=== PATIENT | female | born 1965 ===

== ENCOUNTER 2018-09-04 15:15 | Emergency (ER) | payer MEDICAID ==
--- NOTE | 2018-09-04 16:12 | C.PDOC ---
History Of Present Illness 52 y/o female presents to the ER complaining of vertigo type dizziness which has been present since yesterday. Patient states that she has associated nausea and vomiting. Patient reports that she went to see Dr. Rayo Medina in the morning and he prescribed Meclizine and Reglan. She notes that she tried to take the medications but she vomited. She called and he advised her to visit the ER. Denies having fever, chills, CP, and SOB. Time Seen by Provider: 09/04/18 15:44 Chief Complaint (Nursing): Abdominal Pain History Per: Patient History/Exam Limitations: no limitations Onset/Duration Of Symptoms: Days Current Symptoms Are (Timing): Still Present Severity: Moderate Past Medical History Reviewed: Historical Data, Nursing Documentation, Vital Signs Vital Signs: Last Vital Signs Temp 98.4 F 09/04/18 15:26 Pulse 60 09/04/18 15:26 Resp 16 09/04/18 15:26 BP 111/68 09/04/18 15:26 Pulse Ox 100 09/04/18 15:26 - Medical History PMH: HTN Surgical History: No Surg Hx Family History: States: No Known Family Hx - Social History Hx Alcohol Use: No Hx Substance Use: No - Immunization History Hx Tetanus Toxoid Vaccination: No Hx Influenza Vaccination: No Hx Pneumococcal Vaccination: No Review Of Systems Except As Marked, All Systems Reviewed And Found Negative. Constitutional: Negative for: Fever, Chills Cardiovascular: Negative for: Chest Pain Respiratory: Negative for: Shortness of Breath Gastrointestinal: Positive for: Nausea, Vomiting Neurological: Positive for: Dizziness Physical Exam - Physical Exam Appears: Non-toxic, Other (uncomfortable) Skin: Normal Color, Warm, Dry Head: Atraumatic, Normacephalic Eye(s): bilateral: Normal Inspection, PERRL, EOMI Nose: Normal Oral Mucosa: Moist Neck: Supple Chest: Symmetrical Cardiovascular: Rhythm Regular Respiratory: Normal Breath Sounds, No Rales, No Rhonchi, No Wheezing Gastrointestinal/Abdominal: Normal Exam, Soft, No Tenderness, No Guarding, No Rebound Neurological/Psych: Oriented x3, Normal Speech ED Course And Treatment - Laboratory Results Result Diagrams: 09/04/18 16:38 09/04/18 16:38 ECG: Interpreted By Me, Viewed By Me ECG Rhythm: Sinus Rhythm Rate From EC O2 Sat by Pulse Oximetry: 100 (RA) Pulse Ox Interpretation: Normal - Radiology CXR: Interpreted by Me, Viewed By Me CXR Interpretation: Yes: No Acute Disease - CT Scan/US CT-Head Other Rad Studies (CT/US): Read By Radiologist, Radiology Report Reviewed CT/US Interpretation: Date of service: 09/04/2018. PROCEDURE: CT HEAD WITHOUT CONTRAST. HISTORY: dizzy, vomiting. COMPARISON: None available. TECHNIQUE: Axial computed tomography images were obtained through the head/brain without intravenous contrast. Radiation dose: Total exam DLP = 859.11 mGy-cm. This CT exam was performed using one or more of the following dose reduction techniques: Automated exposure control, adjustment of the mA and/or kV according to patient size, and/or use of iterative reconstruction technique. FINDINGS: HEMORRHAGE: No intracranial hemorrhage. BRAIN: No mass effect or edema. The jordan-white matter differentiation appears intact. Please note that MRI with diffusion imaging is more sensitive in the detection of acute ischemic event. VENTRICLES: No hydrocephalus. CALVARIUM: Unremarkable. PARANASAL SINUSES: Unremarkable as visualized. No significant inflammatory changes. MASTOID AIR CELLS: Unremarkable as visualized. No inflammatory changes. OTHER FINDINGS: None. IMPRESSION: No acute intracranial pathology identified. Progress Note: Labs, UA, and CT- Head ordered and reviewed. Pt treated with Zofran IV and IV Fluids. Pt tolerated PO challenge. On re-evaluation, she feels better. She has been discharged and instruced to follow up with her PMD in 1 -2 days. Disposition - Disposition Disposition: HOME/ ROUTINE Disposition Time: 18:07 Condition: STABLE Additional Instructions: Follow up with within 1-2 days. Return to ED if feel worse. Instructions: Vertigo (a Type of Dizziness) Forms: [employer]i Hits (Salvadorean) - Clinical Impression Clinical Impression: Vertigo - PA / SERVICE DESK MANAGER / Resident Statement MD/DO has reviewed & agrees with the documentation as recorded. - Scribe Statement The provider has reviewed the documentation as recorded by the Renee Spivey Provider Attestation All medical record entries made by the Senaitibe were at my direction and personally dictated by me. I have reviewed the chart and agree that the record accurately reflects my personal performance of the history, physical exam, medical decision making, and the department course for this patient. I have also personally directed, reviewed, and agree with the discharge instructions and disposition.
[2018-09-04] MEDS ORDERED: Sodium Chloride 0.9% 1,000 ML IV STA (16:23)
[2018-09-04 16:40] LABS: BASO # 0.1 K/uL (0.0-0.2); EOS # 0.2 K/uL (0.0-0.7); EOS % 1.7 % (0.0-4.0); HEMOGLOBIN 12.9 g/dL (11.0-16.0); LYMPH # 2.5 K/uL (1.0-4.3); LYMPH % 25.6 % (20.0-40.0); MEAN CELL VOLUME 75.8 fL (81.0-99.0); MEAN CORPUSCULAR HEMOGLOBIN 24.9 pg (27.0-31.0); MEAN CORPUSCULAR HGB CONC 32.9 g/dL (33.0-37.0); MEAN PLATELET VOLUME 8.9 fL (7.2-11.7); MONO # 0.4 K/uL (0.0-0.8); MONO % 4.4 % (0.0-10.0); NEUT # 6.5 K/uL (1.8-7.0); NEUT % 67.3 % (50.0-75.0); NRBC % 0.1 % (0.0-2.0); RBC 5.16 Mil/uL (3.80-5.20); RED CELL DISTRIBUTION WIDTH 15.8 % (11.5-14.5); WHITE BLOOD COUNT 9.7 K/uL (4.8-10.8)
[2018-09-04] MEDS ORDERED: Sodium Chloride 0.9% 1,000 ML ONE (16:40)
[2018-09-04 16:53] LABS: ALB/GLOB RATIO 1.1 (1.0-2.1); ALBUMIN 4.3 g/dL (3.5-5.0); BLOOD UREA NITROGEN 11 mg/dL (7-17); CALCIUM 9.3 mg/dl (8.6-10.4); GFR NON-AFRICAN AMERICAN > 60; LIPASE 133 U/L (23-300)
[2018-09-04 16:55] LABS: ALT/SGPT 18 U/L (9-52); AST/SGOT 36 U/L (14-36)
[2018-09-04 17:05] LABS: CK-MB 0.92 ng/mL (0.0-3.38)
[2018-09-04 17:08] LABS: INR 1.2; PROTHROMBIN TIME 13.2 SECONDS (9.7-12.2)
--- NOTE | 2018-09-04 17:21 | RAD ---
Date of service: 09/04/2018 HISTORY: dizzy, vomiting COMPARISON: None available. FINDINGS: LUNGS: No active pulmonary disease. PLEURA: No significant pleural effusion identified, no pneumothorax apparent. CARDIOVASCULAR: No aortic atherosclerotic calcification present. Normal cardiac size. No pulmonary vascular congestion. OSSEOUS STRUCTURES: No significant abnormalities. VISUALIZED UPPER ABDOMEN: Normal. OTHER FINDINGS: None. IMPRESSION: No active disease.
--- NOTE | 2018-09-04 17:28 | CT ---
Date of service: 09/04/2018 PROCEDURE: CT HEAD WITHOUT CONTRAST. HISTORY: dizzy, vomiting COMPARISON: None available. TECHNIQUE: Axial computed tomography images were obtained through the head/brain without intravenous contrast. Radiation dose: Total exam DLP = 859.11 mGy-cm. This CT exam was performed using one or more of the following dose reduction techniques: Automated exposure control, adjustment of the mA and/or kV according to patient size, and/or use of iterative reconstruction technique. FINDINGS: HEMORRHAGE: No intracranial hemorrhage. BRAIN: No mass effect or edema. The jordan-white matter differentiation appears intact. Please note that MRI with diffusion imaging is more sensitive in the detection of acute ischemic event. VENTRICLES: No hydrocephalus. CALVARIUM: Unremarkable. PARANASAL SINUSES: Unremarkable as visualized. No significant inflammatory changes. MASTOID AIR CELLS: Unremarkable as visualized. No inflammatory changes. OTHER FINDINGS: None. IMPRESSION: No acute intracranial pathology identified.
[2018-09-04 17:41] LABS: SQUAMOUS EPITHIAL 1 /hpf (0-5); URINE BILIRUBIN NEGATIVE (NEGATIVE); URINE BLOOD NEGATIVE (NEGATIVE); URINE CLARITY Clear (Clear); URINE COLOR Yellow (YELLOW); URINE GLUCOSE (UA) NORMAL (Normal); URINE LEUKOCYTE ESTERASE NEG Leu/uL (Negative); URINE PROTEIN NEGATIVE (NEGATIVE); URINE UROBILINOGEN NORMAL mg/dL (0.2-1.0)
[2018-09-04 17:50] VITALS: BP 126/78; PULSE 64; RESP 15; TEMP 97.8
[2018-09-04 18:09] VITALS: O2SAT 100
--- NOTE | 2018-09-05 17:04 | CARD ---
APPROVED REPORT Date of service: 09/04/2018 EKG Measurement Heart [id number] <Conclusion> Normal sinus rhythm Minimal voltage criteria for LVH, may be normal variant Borderline ECG
== END 2018-09-04 18:27 | disposition home or self-care (01) ==
LOC: C.ER 15:15
DX: R42 Dizziness and giddiness (principal); I10 Essential (primary) hypertension
CPT/HCPCS: 70450; 71045; 80053; 81001; 82550; 82553; 83690; 84484; 85025; 85610; 85730; 93005; 96361; 96374; 99284; J2405; J7030